=== PATIENT | female | born 1980 | race Caucasian/White ===

== ENCOUNTER 2016-06-11 16:17 | Emergency (ER) | payer MEDICAID ==
[~2016-06-11] VITALS: Ht 170.2 cm; Wt 107.7 kg
[~2016-06-11 16:17] MED LIST: CYAN1000P IM; FENT50DI T-DERMAL; LEVO50TA4 PO; LYRI75CA PO; PERC10TA27 PO; PREN29TA PO; TOPA50TA7 PO; VITA100064 PO
[2016-06-11 16:18] VITALS: BP 129/63; PULSE 63; RESP 16; TEMP 97.9; O2SAT 98
[2016-06-11 16:58] LABS: BLOOD, URINE NEG (NEG); GLUCOSE,URINE NEG (NEG); KETONE, URINE NEG (NEG); NITRITE,URINE NEG (NEG); SQUAMOUS EPITHELIAL CELL URINE 1 /hpf (0-5); URINE COLOR LIGHT-YELLOW (YELLW/STRAW)
[2016-06-11 16:59] LABS: COMMENT (UR) CULT NOT INDICATED; CULTURE IF INDICATED CULT NOT INDICATED
[2016-06-11 17:27] LABS: BASOPHIL % 0.2 % (0.0-2.0); EOSINOPHIL # 0.1 TH/MM3 (0-0.4); EOSINOPHIL % 1.8 % (0.0-4.0); HEMATOCRIT 31.7 % (35.0-46.0); HEMO FLAGS DIFF FINAL; LYMPH % 29.8 % (9.0-44.0); LYMPHOCYTE # 2.1 TH/MM3 (1.0-4.8); MEAN CELL VOLUME 76.6 FL (80.0-100.0); MEAN CORPUSCULAR HEMOGLOBIN 25.5 PG (27.0-34.0); MEAN CORPUSCULAR HGB CONC 33.3 % (32.0-36.0); MONO % 10.7 % (0.0-8.0); NEUT % 57.5 % (16.0-70.0); PLATELET COUNT 223 TH/MM3 (150-450); RED BLOOD COUNT 4.13 MIL/MM3 (4.00-5.30); RED CELL DISTRIBUTION WIDTH 14.8 % (11.6-17.2); WHITE BLOOD COUNT 6.9 TH/MM3 (4.0-11.0)
--- NOTE | 2016-06-11 17:44 | PD ---
HPI Chief Complaint: Abdominal Pain Time Seen by Provider: 17:39 Travel History International Travel<30 days: No Contact w/Intl Traveler<30days: No Traveled to known affect area: No History of Present Illness HPI 35-year-old female that presents to the ED for evaluation of right-sided lower pelvic pain. Per patient she's had this for the past 2-3 days. Per patient is worsening. Per patient she had her regular period about 3-4 weeks ago. Per patient he was normal. Per patient she does have a history of PCOS with surgical removal of teratomas to her ovaries bilaterally. Per patient she's had pain like this in the past and feels like it's related to the old teratomas. She denies any bleeding but states having some clear discharge from her vagina. She does have allergies to anti-inflammatories as well as adhesives and Keflex. She states that her pain is 7 out of 10. Does not radiate. No urinary issues. She still has her appendix. She has no chest pain or shortness of breath. Denies any nausea or vomiting. States the is a possibility but she is not sure. She does tell me the last and she was was in November and she was partially had a miscarriage with a D& C. Nothing makes the pain better or worse. Pain is sharp. PFSH Past Medical History Bipolar Disorder: Yes Depression: Yes Cancer: No Cardiovascular Problems: No Diminished Hearing: No Endocrine: No Fibromyalgia: Yes Gastrointestinal Disorders: Yes (GERD) Genitourinary: No Hepatitis: No Hiatal Hernia: No Hypertension: Yes (BEFORE GASTRIC BYPASS ) Immune Disorder: No Musculoskeletal: Yes (SPINAL STENOSIS, HERNIATED DISCS, RUPTURED DISC, PAIN NECK AND ARMS) Neurologic: Yes (CHIARI SYNDROME, MIGRAINES) Psychiatric: Yes (ANXIETY/DEPRESSION) Reproductive: Yes (POLYCYSTIC OVARIAN SYNDROME) Immunizations Current: Yes Sleep Apnea: Yes (does not wear cpap) Thyroid Disease: Yes (WAS TOLD SHE HAS HYPER BUT TAKES LEVOTHYROXINE) Tetanus Vaccination: < 5 Years Influenza Vaccination: Yes ?: LMP: MAY 06 2016 : 3 Para: 1 Miscarriage: 1 Ovarian Cysts: Yes (POLYCYSTIC OVARIAN DISEASE) Past Surgical History Abdominal Surgery: Yes (GASTRIC BYPASS, DILATION OF SCAR FROM BYPASS) AICD: No Body Medical Devices: NONE Cardiac Surgery: No Section: Yes Ear Surgery: No Endocrine Surgery: No Eye Surgery: No Genitourinary Surgery: No Gynecologic Surgery: Yes (C SECTION, CYSTS REMOVED BILAT OVARY, D&C) Joint Replacement: No Oral Surgery: No Pacemaker: No Other Surgery: Yes (L4 AND L5 REPLACEMENT) Social History Alcohol Use: No Tobacco Use: No Substance Use: No Allergies-Medications (Allergen,Severity, Reaction): Coded Allergies: Adhesives (Verified Allergy, Severe, itching;rash, 06/11/16) Effexor (Verified Allergy, Severe, N/V, 06/11/16) Ibuprofen (Verified Allergy, Severe, S/P GASTRIC BYPASS, 06/11/16) CAUSED ULCER Keflex (Verified Allergy, Severe, Nausea/Vomiting, 06/11/16) Nonsteroidal Anti-Inflammatory Agts (Verified Allergy, Unknown, Nausea/ Vomiting, 06/11/16) IRRITATION LINING OF STOMACH Reported Meds & Prescriptions Reported Meds & Active Scripts Active Reported Vitamin D (Cholecalciferol) 1,000 Unit Tab 2,000 Units PO DAILY Plus Iron 29-1 mg ( Vit-Iron Carbonyl) 1 Tab Tab 1 Tab PO DAILY Topamax (Topiramate) 50 Mg Tab 50 Mg PO BID Percocet (Oxycodone-Acetaminophen) 10-325 mg Tab 1 Tab PO TID PRN PRN Levothyroxine (Levothyroxine Sodium) 50 Mcg Tab 50 Mcg PO DAILY Fentanyl Patch 72 HR (Fentanyl) 50 Mcg/Hr Patch 50 Mcg T-DERMAL Q72H Remove old patch when new one placed. Cyanocobalamin Inj (Cyanocobalamin) 1,000 Mcg/Ml Inj 1,000 Mcg IM Q30D Lyrica (Pregabalin) 75 Mg Cap 75 Mg PO TID Review of Systems General / Constitutional: No: Fever, Chills, Weight Gain, Weight Loss, Other Eyes: No: Diploplia, Blurred Vision, Photophobia, Drainage, Redness, Foreign Body Sensation, Pain, Tearing, Blind Spots, Visual changes, Blindness, Other HENT: No: Headaches, Vertigo, Lightheadedness, Sore Throat, Rhinitis, Rhinorrhea, Congestion, Nosebleed, Neck Stiffness, Neck Pain, Masses, Gingival Bleeding, Dental Difficulties, Ear Discharge, Earache, Other Cardiovascular: No: Chest Pain or Discomfort, Palpitations, Irregular Rhythm, Tachycardia, Diaphoresis, Syncope, Dyspnea on exertion, Varicosities, Edema, Cyanosis, Varicosities, Phlebitis, Claudication, Other Respiratory: No: Cough, Shortness of Breath, Wheezing, Sneezing, Orthopnea, Hemoptysis, Stridor, Night Sweats, Pleuritic Pain, Other Gastrointestinal: Positive: Abdominal Pain, No: Nausea, Vomiting, Diarrhea, Hematemesis, Hematochezia, Constipation, Changes in Bowel Habits, Indigestion, Dysphagia, Loss of Appetite, Other Genitourinary: Positive: Pelvic Pain, Discharge, No: Urgency, Frequency, Dysuria, Nocturia, Hematuria, Decreased Urinary Output, Oliguria, Hesitancy, Dribbling, Incontinence, Flank Pain, Dyspareunia, Dysmenorrhea, Menorrhagia, Metorrhagia, Vaginal Bleeding, Other Musculoskeletal: No: Myalgias, Arthralgias, Limited ROM, Weakness, Cramping, Edema, Pain, Atrophy, Other Skin: No Rash, No Itching, No Dryness, No Lumps, No Hives, No Change in Pigmentation, No Change in nails, No Alopecia, No Lesions, No Breast Lumps, No Breast Tenderness, No Breast Swelling, No Other Neurologic: No: Weakness, Dizziness, Syncope, Focal Abnormalities, Coordination Problem, Tremor, Ataxia, Headache, Change in Mentation, Slurred Speech, Paresthesia, Incontinence, Seizures, Sensory Disturbance, Other Psychiatric: No: Anxiety, Depression, Suicidal Ideations, Disorder of Thought, Mood Disorder, Substance Abuse, Homicidal Ideation, Other Endocrine: No: Heat Intolerance, Cold Intolerance, Polyuria, Polydipsia, Other Hematologic/Lymphatic: No: Easy Bruising, Lymph Node Enlargement, Other Physical Exam Narrative GENERAL: SKIN: Warm and dry. HEAD: Atraumatic. Normocephalic. EYES: Pupils equal and round. No scleral icterus. No injection or drainage. ENT: No nasal bleeding or discharge. Mucous membranes pink and moist. Tongue is midline. No uvula deviation. NECK: Trachea midline. No JVD. CARDIOVASCULAR: Regular rate and rhythm. No murmurs, S3, S4. RESPIRATORY: No accessory muscle use. Clear to auscultation. Breath sounds equal bilaterally. GASTROINTESTINAL: Abdomen soft, patient does have some reproducible pain on the right lower abdomen more on the pelvic region., nondistended. Hepatic and splenic margins not palpable. MUSCULOSKELETAL: Extremities without clubbing, cyanosis, or edema. No obvious deformities. Patient has full range of motion of the upper and lower extremities bilaterally. 2+ pulses bilaterally. NEUROLOGICAL: Awake and alert. No obvious cranial nerve deficits. Motor grossly within normal limits. Five out of 5 muscle strength in the arms and legs. Normal speech. PSYCHIATRIC: Appropriate mood and affect; insight and judgment normal. Data Data Last Documented VS Vital Signs Date Time Temp Pulse Resp B/P Pulse Ox O2 Delivery O2 Flow Rate FiO2 06/11/16 19:23 16 06/11/16 18:15 60 125/57 100 Room Air 06/11/16 16:18 97.9 Orders Ed Urine Pregnancytest Poc (06/11/16 16:25) Urinalysis - C+S If Indicated (06/11/16 16:25) Ed Poc Ultrasound (06/11/16 ) Complete Blood Count With Diff (06/11/16 16:56) Basic Metabolic Panel (Bmp) (06/11/16 16:56) Beta Hcg (Quant/Titer) (06/11/16 16:56) Wet Prep Profile (06/11/16 16:56) Gc And Chlamydia Pcr (06/11/16 16:56) Us Pelvis (Ques Pr/Ect)W Trans (06/11/16 17:01) Acetaminophen (Tylenol) (06/11/16 17:45) Labs Laboratory Tests Test 06/11/16 06/11/16 16:30 17:20 Urine Color LIGHT-YELLOW Urine Turbidity CLEAR Urine pH 7.0 Urine Specific [place] 1.004 Urine Protein NEG mg/dL Urine Glucose (UA) NEG mg/dL Urine Ketones NEG mg/dL Urine Occult Blood NEG Urine Nitrite NEG Urine Bilirubin NEG Urine Urobilinogen LESS THAN 2.0 MG/DL Urine Leukocyte Esterase NEG Urine RBC LESS THAN 1 /hpf Urine WBC LESS THAN 1 /hpf Urine Squamous Epithelial 1 /hpf Cells Microscopic Urinalysis Comment CULT NOT INDICATED White Blood Count 6.9 TH/MM3 Red Blood Count 4.13 MIL/MM3 Hemoglobin 10.5 GM/DL Hematocrit 31.7 % Mean Corpuscular Volume 76.6 FL Mean Corpuscular Hemoglobin 25.5 PG Mean Corpuscular Hemoglobin 33.3 % Concent Red Cell Distribution Width 14.8 % Platelet Count 223 TH/MM3 Mean Platelet Volume 8.8 FL Neutrophils (%) (Auto) 57.5 % Lymphocytes (%) (Auto) 29.8 % Monocytes (%) (Auto) 10.7 % Eosinophils (%) (Auto) 1.8 % Basophils (%) (Auto) 0.2 % Neutrophils # (Auto) 4.0 TH/MM3 Lymphocytes # (Auto) 2.1 TH/MM3 Monocytes # (Auto) 0.7 TH/MM3 Eosinophils # (Auto) 0.1 TH/MM3 Basophils # (Auto) 0.0 TH/MM3 CBC Comment DIFF FINAL Differential Comment Sodium Level 142 MEQ/L Potassium Level 3.6 MEQ/L Chloride Level 111 MEQ/L Carbon Dioxide Level 22.1 MEQ/L Anion Gap 9 MEQ/L Blood Urea Nitrogen 6 MG/DL Creatinine 0.73 MG/DL Estimat Glomerular Filtration 92 ML/MIN Rate Random Glucose 91 MG/DL Calcium Level 8.5 MG/DL Human Chorionic Gonadotropin, 5543 MIU/ML Quant MDM Medical Decision Making Medical Screen Exam Complete: Yes Emergency Medical Condition: Yes Medical Record Reviewed: Yes Interpretation(s) CBC & BMP Diagram 06/11/16 17:20 UA negative Beta in the 5000s Differential Diagnosis PCOs versus ectopic versus IUP versus pain versus vaginal discharge versus normal exam Narrative Course 35-year-old female that presents to the ED for evaluation of right lower abdominal pain. Patient was properly examined and was found to have signs and symptoms which appear to be consistent with pelvic pain. Patient had a positive test. Concern for ectopic . My attending perform a bedside ultrasound and we cannot find an IUP but he could be related to her early . Formal ultrasound was ordered. Labs were ordered. Labs and imaging were essentially unremarkable other than for IUP. Patient was reassured. My attending Dr. Holt reassured the patient. Patient was told that the finding of subchoronic hemorrhage on the ultrasound. Patient was told to take Tylenol for pain. Follow with SOFTWARE DEVELOPER INTERN. See ED for worsening symptoms. Diagnosis Primary Impression: IUP (intrauterine ), incidental Patient Instructions: General Instructions Additional Instructions: F/u SOFTWARE DEVELOPER INTERN. Tylenol for pain. See ED if worst. US showed of 5 weeks, no ectopic, cyst to right ovary. Med/Other Pt SpecificInfo: No Change to Meds Disposition: 01 DISCHARGE HOME Condition: Stable Polo Gilbert Jun 11, 2016 17:44
[2016-06-11] MEDS ORDERED: ACETAMINOPHEN 325 MG TAB PO ONE (17:45)
[2016-06-11 17:47] LABS: BICARBONATE 22.1 MEQ/L (21.0-32.0); POTASSIUM 3.6 MEQ/L (3.5-5.1)
--- NOTE | 2016-06-11 18:04 | PD ---
Data Data Last Documented VS Vital Signs Date Time Temp Pulse Resp B/P Pulse Ox O2 Delivery O2 Flow Rate FiO2 06/11/16 18:15 60 18 125/57 100 Room Air 06/11/16 16:18 97.9 Orders Ed Urine Pregnancytest Poc (06/11/16 16:25) Urinalysis - C+S If Indicated (06/11/16 16:25) Ed Poc Ultrasound (06/11/16 ) Complete Blood Count With Diff (06/11/16 16:56) Basic Metabolic Panel (Bmp) (06/11/16 16:56) Beta Hcg (Quant/Titer) (06/11/16 16:56) Wet Prep Profile (06/11/16 16:56) Gc And Chlamydia Pcr (06/11/16 16:56) Us Pelvis (Ques Pr/Ect)W Trans (06/11/16 17:01) Acetaminophen (Tylenol) (06/11/16 17:45) Labs Laboratory Tests Test 06/11/16 06/11/16 16:30 17:20 Urine Color LIGHT-YELLOW Urine Turbidity CLEAR Urine pH 7.0 Urine Specific [place] 1.004 Urine Protein NEG mg/dL Urine Glucose (UA) NEG mg/dL Urine Ketones NEG mg/dL Urine Occult Blood NEG Urine Nitrite NEG Urine Bilirubin NEG Urine Urobilinogen LESS THAN 2.0 MG/DL Urine Leukocyte Esterase NEG Urine RBC LESS THAN 1 /hpf Urine WBC LESS THAN 1 /hpf Urine Squamous Epithelial 1 /hpf Cells Microscopic Urinalysis Comment CULT NOT INDICATED White Blood Count 6.9 TH/MM3 Red Blood Count 4.13 MIL/MM3 Hemoglobin 10.5 GM/DL Hematocrit 31.7 % Mean Corpuscular Volume 76.6 FL Mean Corpuscular Hemoglobin 25.5 PG Mean Corpuscular Hemoglobin 33.3 % Concent Red Cell Distribution Width 14.8 % Platelet Count 223 TH/MM3 Mean Platelet Volume 8.8 FL Neutrophils (%) (Auto) 57.5 % Lymphocytes (%) (Auto) 29.8 % Monocytes (%) (Auto) 10.7 % Eosinophils (%) (Auto) 1.8 % Basophils (%) (Auto) 0.2 % Neutrophils # (Auto) 4.0 TH/MM3 Lymphocytes # (Auto) 2.1 TH/MM3 Monocytes # (Auto) 0.7 TH/MM3 Eosinophils # (Auto) 0.1 TH/MM3 Basophils # (Auto) 0.0 TH/MM3 CBC Comment DIFF FINAL Differential Comment Sodium Level 142 MEQ/L Potassium Level 3.6 MEQ/L Chloride Level 111 MEQ/L Carbon Dioxide Level 22.1 MEQ/L Anion Gap 9 MEQ/L Blood Urea Nitrogen 6 MG/DL Creatinine 0.73 MG/DL Estimat Glomerular Filtration 92 ML/MIN Rate Random Glucose 91 MG/DL Calcium Level 8.5 MG/DL Human Chorionic Gonadotropin, 5543 MIU/ML Quant [facility] Supervised Visit with NROAH: Yes Narrative Course I, Dr. Lomeli, have reviewed the advance practice practioner's documentation and am in agreement, met with the patient face to face, made the diagnosis, and the medical decision making was done by me. *My assessment and Findings: 35-year-old female miscarriage 1, with history of PCOS with bilateral turtle mole removal here with right lower pelvic pain, sharp 2-3 days, intermittent, gradually worsening. Last menstrual period approximately 3-4 weeks ago. She does not believe she could be . Denies any urinary, bowel symptoms. No vaginal bleeding, typical clear vaginal discharge. Obese, mild reproducible right lower quadrant tenderness to palpation on exam. Differential includes , ectopic , UTI, ovarian cysts and less likely ovarian torsion given her overall benign exam. My suspicion for peritoneal pathology such as appendicitis is low. Urine test was positive, bedside ultrasound performed unable to identify intrauterine . Urinalysis negative. Beta Quant 5543. Will obtain a formal ultrasound to evaluate for IUP versus ectopic versus ovarian cyst. Procedures Procedure Narrative Emergency Department Pelvic ultrasound was performed with patient consent. The curvilinear probe was used in the transverse and sagittal views within the suprapubic region revealing no definitive intrauterine Debbie Lomeli MD Jun 11, 2016 18:04
[2016-06-11 18:15] VITALS: BP 125/57; PULSE 60; RESP 18; O2SAT 100
[2016-06-11 19:23] VITALS: RESP 16
--- NOTE | 2016-06-11 19:53 | RADRPT ---
EXAM DATE/TIME: 06/11/2016 18:17 [place] COMPARISON: No previous studies available for comparison. INDICATIONS : Pelvic pain. LAB(S): Beta-hC MEDICAL HISTORY : . PCOS. GERD. SURGICAL HISTORY : section. Teratomas removed from bilateral ovaries. Gastric bypass. L4 and L5 replacement . ENCOUNTER: [facility] ACUITY: 1 day PAIN SCORE: 7/10 LOCATION: Bilateral pelvis MEASUREMENTS: UTERUS: 9.7 x 5.5 x 6.0 cm ENDOMETRIAL STRIPE: 15 mm RIGHT OVARY: 2.6 x 1.9 x 2.3 cm LEFT OVARY: 4.6 x 2.7 x 4.3 cm FINDINGS: There is intrauterine gestational sac noted with measurements characteristic of 5 week one day gestat ion. No pole identified. Small yolk sac is seen. There is a subchorionic hemorrhage measuring u p to 2.7 x 0.9 x 1 cm. Right ovary unremarkable. 3 cm simple cyst and probably 3 cm corpus luteum cys t noted in the left ovary. No free fluid. CONCLUSION: 1. Early gestation with gestational sac measurements characteristic of gestational age 5 weeks and on e day. Yolk sac seen. No pole or heart rate identified. Subchorionic hemorrhage noted ann suring up to 2.7 x 0.9 x 1 cm. 3 cm left ovarian cysts as well. Titi Skaggs MD on June 11, 2016 at 19:47 Board Certified Radiologist. This report was verified electronically.
== END 2016-06-11 20:12 | disposition home or self-care (01) ==
LOC: NEPC 16:17
DX: O26.891 Other specified pregnancy related conditions, first trimester (principal); F31.9 Bipolar disorder, unspecified; M79.7 Fibromyalgia; K21.9 Gastro-esophageal reflux disease without esophagitis; E28.2 Polycystic ovarian syndrome
CPT/HCPCS: 76700; 76817; 80048; 81001; 84702; 84703; 85025

== ENCOUNTER → 2016-06-14 | Outpatient (CLI) | payer MEDICAID ==
[~2016-06-14] MED LIST changes: +FERR1TAB36 PO
== END ==
LOC: CLAB 10:23
PROVIDERS: ATTEND Obstetrics & Gynecology
DX: O36.0190 Maternal care for anti-D [Rh] antibodies, unspecified trimester, not applicable or unspecified (principal)
CPT/HCPCS: 36415; 90384; 96372; J2790

== ENCOUNTER 2016-08-11 19:29 | Emergency (ER) | payer MEDICAID ==
[~2016-08-11] VITALS: Ht 175.3 cm; Wt 88.0 kg
[~2016-08-11 19:29] MED LIST changes: -FERR1TAB36 PO
[2016-08-11 19:31] VITALS: BP 136/69; PULSE 78; RESP 16; TEMP 98; O2SAT 100
[2016-08-11 20:25] VITALS: BP 118/61; PULSE 70; RESP 18; O2SAT 98
[2016-08-11] MEDS ORDERED: FERR1TAB36 PO (20:25)
[2016-08-11] MEDS ORDERED: SODIUM CHLOR 0.9% 1000 ML INJ 1,000 ML IV ONE (20:33)
[2016-08-11] MEDS ORDERED: MORPHINE SULFATE 4 MG/ML INJ IV PUSH ONE (20:45)
[2016-08-11] MEDS ORDERED: ONDANSETRON HCL 4 MG/2 ML VIAL IVP ONE (20:45)
[2016-08-11] MEDS ORDERED: SODIUM CHLORIDE 0.9% FLUSH 10 ML FLUSH IVF PRN (20:45)
--- NOTE | 2016-08-11 20:55 | PD ---
HPI Chief Complaint: Fall Time Seen by Provider: 20:42 Travel History International Travel<30 days: No Contact w/Intl Traveler<30days: No Traveled to known affect area: No History of Present Illness HPI Patient is a 35-year-old female presenting to emergency Department for evaluation after a fall. Patient states that she was walking down the stairs at her home when she became dizzy and shaky. She fell down approximately 4 steps landing on her buttocks hitting her lower back on the stair tread. She is approximately 14 weeks , she's had daily vomiting for the better part of the . Patient is presenting complaining of pain in her lower back, she reports the pain as a 7 out of 10 and describes it as sore. Patient states the pain radiates around to her right groin injury but feels as if she had a brief loss of consciousness, awakening when her 3-year-old son tapped on her. PFSH Past Medical History Bipolar Disorder: Yes Depression: Yes Cancer: No Cardiovascular Problems: No Diminished Hearing: No Endocrine: No Fibromyalgia: Yes Gastrointestinal Disorders: Yes (GERD) Genitourinary: No Hepatitis: No Hiatal Hernia: No Hypertension: Yes (BEFORE GASTRIC BYPASS ) Immune Disorder: No Musculoskeletal: Yes (SPINAL STENOSIS, HERNIATED DISCS, RUPTURED DISC, PAIN NECK AND ARMS) Neurologic: Yes (CHIARI SYNDROME, MIGRAINES) Psychiatric: Yes (ANXIETY/DEPRESSION) Reproductive: Yes (POLYCYSTIC OVARIAN SYNDROME) Immunizations Current: Yes Sleep Apnea: Yes (does not wear cpap) Thyroid Disease: Yes (WAS TOLD SHE HAS HYPER BUT TAKES LEVOTHYROXINE) Tetanus Vaccination: < 5 Years Influenza Vaccination: Yes ?: : 3 Para: 1 Miscarriage: 1 Ovarian Cysts: Yes (POLYCYSTIC OVARIAN DISEASE) Past Surgical History Abdominal Surgery: Yes (GASTRIC BYPASS, DILATION OF SCAR FROM BYPASS) AICD: No Body Medical Devices: NONE Cardiac Surgery: No Section: Yes Ear Surgery: No Endocrine Surgery: No Eye Surgery: No Genitourinary Surgery: No Gynecologic Surgery: Yes (C SECTION, CYSTS REMOVED BILAT OVARY, D&C) Joint Replacement: No Oral Surgery: No Pacemaker: No Other Surgery: Yes (L4 AND L5 REPLACEMENT) Social History Alcohol Use: No Tobacco Use: No Substance Use: No Allergies-Medications (Allergen,Severity, Reaction): Coded Allergies: Adhesives (Verified Allergy, Severe, itching;rash, 08/11/16) Effexor (Verified Allergy, Severe, N/V, 08/11/16) Ibuprofen (Verified Allergy, Severe, S/P GASTRIC BYPASS, 08/11/16) CAUSED ULCER Keflex (Verified Allergy, Severe, Nausea/Vomiting, 08/11/16) Nonsteroidal Anti-Inflammatory Agts (Verified Allergy, Unknown, Nausea/ Vomiting, 08/11/16) IRRITATION LINING OF STOMACH Reported Meds & Prescriptions Reported Meds & Active Scripts Active Reported Iron (Ferrous Sulfate) 325 Mg Tab 325 Mg PO DAILY Take Vitamin D (Cholecalciferol) 1,000 Unit Tab 2,000 Units PO DAILY Plus Iron 29-1 mg ( Vit-Iron Carbonyl) 1 Tab Tab 1 Tab PO DAILY Topamax (Topiramate) 50 Mg Tab 50 Mg PO BID Percocet (Oxycodone-Acetaminophen) 10-325 mg Tab 1 Tab PO TID PRN PRN Levothyroxine (Levothyroxine Sodium) 50 Mcg Tab 50 Mcg PO DAILY Fentanyl Patch 72 HR (Fentanyl) 50 Mcg/Hr Patch 50 Mcg T-DERMAL Q72H Remove old patch when new one placed. Cyanocobalamin Inj (Cyanocobalamin) 1,000 Mcg/Ml Inj 1,000 Mcg IM Q30D Lyrica (Pregabalin) 75 Mg Cap 75 Mg PO TID Review of Systems Except as stated in HPI: all other systems reviewed are Neg HENT: Positive: Neck Pain, No: Headaches Cardiovascular: No: Chest Pain or Discomfort Respiratory: No: Shortness of Breath Gastrointestinal: Positive: Nausea, Vomiting, No: Abdominal Pain Musculoskeletal: Positive: Myalgias, Cramping, Pain Neurologic: Positive: Weakness, No: Focal Abnormalities, Change in Mentation, Sensory Disturbance Physical Exam Narrative GENERAL: Obese, well-developed, alert female. Resting comfortably in no acute distress. SKIN: Focused skin assessment warm/dry. HEAD: Atraumatic. Normocephalic. EYES: Pupils equal and round. No scleral icterus. No injection or drainage. ENT: No nasal bleeding or discharge. Mucous membranes pink and moist. NECK: Trachea midline. No JVD. CARDIOVASCULAR: Regular rate and rhythm. No murmur appreciated. RESPIRATORY: No accessory muscle use. Clear to auscultation. Breath sounds equal bilaterally. GASTROINTESTINAL: Abdomen soft, non-tender, nondistended. Hepatic and splenic margins not palpable. Positive bowel sounds, no rebound, no guarding MUSCULOSKELETAL: No obvious deformities. No clubbing. No cyanosis. No edema. Tenderness to palpation. Spinal musculature in the lumbar region. NEUROLOGICAL: Awake and alert. No obvious cranial nerve deficits. Motor grossly within normal limits. Normal speech. PSYCHIATRIC: Appropriate mood and affect; insight and judgment normal. Data Data Last Documented VS Vital Signs Date Time Temp Pulse Resp B/P Pulse Ox O2 Delivery O2 Flow Rate FiO2 08/11/16 23:07 60 18 115/65 99 Room Air 08/11/16 19:31 98.0 Orders Complete Blood Count With Diff (08/11/16 20:33) Comprehensive Metabolic Panel (08/11/16 20:33) Magnesium (Mg) (08/11/16 20:33) Urinalysis - C+S If Indicated (08/11/16 20:33) Ecg Monitoring (08/11/16 20:33) Iv Access Insert/Monitor (08/11/16 20:33) Oximetry (08/11/16 20:33) Ondansetron Inj (Zofran Inj) (08/11/16 20:45) Sodium Chloride 0.9% Flush (Ns Flush) (08/11/16 20:45) Sodium Chlor 0.9% 1000 Ml Inj (Ns 1000 M (08/11/16 20:33) Morphine Inj (Morphine Inj) (08/11/16 20:45) Labs Laboratory Tests Test 08/11/16 08/11/16 20:23 20:35 Urine Color YELLOW Urine Turbidity HAZY Urine pH 6.0 Urine Specific [place] 1.015 Urine Protein TRACE mg/dL Urine Glucose (UA) NEG mg/dL Urine Ketones NEG mg/dL Urine Occult Blood NEG Urine Nitrite NEG Urine Bilirubin NEG Urine Urobilinogen LESS THAN 2.0 MG/DL Urine Leukocyte Esterase SMALL Urine WBC 2 /hpf Urine Squamous Epithelial 8 /hpf Cells Urine Bacteria OCC /hpf Urine Mucus FEW /lpf Microscopic Urinalysis Comment CULT NOT INDICATED White Blood Count 12.5 TH/MM3 Red Blood Count 4.58 MIL/MM3 Hemoglobin 11.4 GM/DL Hematocrit 34.4 % Mean Corpuscular Volume 75.2 FL Mean Corpuscular Hemoglobin 24.8 PG Mean Corpuscular Hemoglobin 33.0 % Concent Red Cell Distribution Width 16.4 % Platelet Count 195 TH/MM3 Mean Platelet Volume 9.0 FL Neutrophils (%) (Auto) 72.7 % Lymphocytes (%) (Auto) 19.7 % Monocytes (%) (Auto) 6.5 % Eosinophils (%) (Auto) 1.0 % Basophils (%) (Auto) 0.1 % Neutrophils # (Auto) 9.1 TH/MM3 Lymphocytes # (Auto) 2.5 TH/MM3 Monocytes # (Auto) 0.8 TH/MM3 Eosinophils # (Auto) 0.1 TH/MM3 Basophils # (Auto) 0.0 TH/MM3 CBC Comment AUTO DIFF Differential Comment AUTO DIFF CONFIRMED Sodium Level 137 MEQ/L Potassium Level 3.8 MEQ/L Chloride Level 105 MEQ/L Carbon Dioxide Level 24.0 MEQ/L Anion Gap 8 MEQ/L Blood Urea Nitrogen 4 MG/DL Creatinine 0.58 MG/DL Estimat Glomerular Filtration 120 ML/MIN Rate Random Glucose 82 MG/DL Calcium Level 8.7 MG/DL Magnesium Level 2.3 MG/DL Total Bilirubin 0.2 MG/DL Aspartate Amino Transf 12 U/L (AST/SGOT) Alanine Aminotransferase 14 U/L (ALT/SGPT) Alkaline Phosphatase 87 U/L Total Protein 7.2 GM/DL Albumin 3.0 GM/DL MDM Medical Decision Making Medical Screen Exam Complete: Yes Emergency Medical Condition: Yes Interpretation(s) Vital Signs Date Time Temp Pulse Resp B/P Pulse Ox O2 Delivery O2 Flow Rate FiO2 08/11/16 20:25 70 18 118/61 98 Room Air 08/11/16 19:31 98.0 78 16 136/69 100 Room Air Differential Diagnosis strain versus sprain versus discogenic pain versus fracture versus electrolyte abnormality versus other Narrative Course Patient is a 35-year-old female presented to the emergency department for evaluation of back and neck pain after a fall that she sustained just prior to arrival. Patient is approximately 14 weeks . Bedside ultrasound shows heart tones and movement. Labs, IV fluids ordered and pending. Care of patient transferred to my attending physician at the end of my shift, he will determine patient's disposition. Diamante Soria Aug 11, 2016 20:55
[2016-08-11 20:56] LABS: AUTOMATED NEUTROPHIL # 9.1 TH/MM3 (1.8-7.7); BASOPHIL % 0.1 % (0.0-2.0); EOSINOPHIL # 0.1 TH/MM3 (0-0.4); HEMATOCRIT 34.4 % (35.0-46.0); LYMPH % 19.7 % (9.0-44.0); LYMPHOCYTE # 2.5 TH/MM3 (1.0-4.8); MEAN CELL VOLUME 75.2 FL (80.0-100.0); MEAN CORPUSCULAR HEMOGLOBIN 24.8 PG (27.0-34.0); MONO % 6.5 % (0.0-8.0); NEUT % 72.7 % (16.0-70.0); PLATELET COUNT 195 TH/MM3 (150-450); RED BLOOD COUNT 4.58 MIL/MM3 (4.00-5.30); RED CELL DISTRIBUTION WIDTH 16.4 % (11.6-17.2); WHITE BLOOD COUNT 12.5 TH/MM3 (4.0-11.0)
[2016-08-11 21:03] LABS: ANION GAP 8 MEQ/L (5-15); AST (GOT) 12 U/L (15-37); BLOOD UREA NITROGEN 4 MG/DL (7-18); CHLORIDE 105 MEQ/L (98-107); GLOMERULAR FILTRATION RATE 120 ML/MIN (>89); MAGNESIUM 2.3 MG/DL (1.5-2.5); POTASSIUM 3.8 MEQ/L (3.5-5.1); SODIUM (NA) 137 MEQ/L (136-145)
[2016-08-11 21:06] LABS: ALKALINE PHOSPHATASE 87 U/L (45-117); ALT (GPT) 14 U/L (10-53); TOTAL BILIRUBIN ADULT 0.2 MG/DL (0.2-1.0)
[2016-08-11 21:09] LABS: HEMO FLAGS AUTO DIFF
[2016-08-11 21:28] VITALS: BP 115/63; PULSE 55; RESP 17; O2SAT 100
[2016-08-11 21:43] LABS: SCAN/DIFF AUTO DIFF CONFIRMED
[2016-08-11 21:47] LABS: BACTERIA, URINE OCC /hpf; BLOOD, URINE NEG (NEG); COMMENT (UR) CULT NOT INDICATED; CULTURE IF INDICATED CULT NOT INDICATED; GLUCOSE,URINE NEG (NEG); KETONE, URINE NEG (NEG); MUCUS URINE FEW /lpf (OCC); NITRITE,URINE NEG (NEG); SQUAMOUS EPITHELIAL CELL URINE 8 /hpf (0-5); URINE COLOR YELLOW (YELLW/STRAW)
[2016-08-11 23:07] VITALS: BP 115/65; PULSE 60; RESP 18; O2SAT 99
--- NOTE | 2016-08-11 23:51 | PD ---
Data Data Last Documented VS Vital Signs Date Time Temp Pulse Resp B/P Pulse Ox O2 Delivery O2 Flow Rate FiO2 08/11/16 23:07 60 18 115/65 99 Room Air 08/11/16 19:31 98.0 Orders Complete Blood Count With Diff (08/11/16 20:33) Comprehensive Metabolic Panel (08/11/16 20:33) Magnesium (Mg) (08/11/16 20:33) Urinalysis - C+S If Indicated (08/11/16 20:33) Ecg Monitoring (08/11/16 20:33) Iv Access Insert/Monitor (08/11/16 20:33) Oximetry (08/11/16 20:33) Ondansetron Inj (Zofran Inj) (08/11/16 20:45) Sodium Chloride 0.9% Flush (Ns Flush) (08/11/16 20:45) Sodium Chlor 0.9% 1000 Ml Inj (Ns 1000 M (08/11/16 20:33) Morphine Inj (Morphine Inj) (08/11/16 20:45) Labs Laboratory Tests Test 08/11/16 08/11/16 20:23 20:35 Urine Color YELLOW Urine Turbidity HAZY Urine pH 6.0 Urine Specific [place] 1.015 Urine Protein TRACE mg/dL Urine Glucose (UA) NEG mg/dL Urine Ketones NEG mg/dL Urine Occult Blood NEG Urine Nitrite NEG Urine Bilirubin NEG Urine Urobilinogen LESS THAN 2.0 MG/DL Urine Leukocyte Esterase SMALL Urine WBC 2 /hpf Urine Squamous Epithelial 8 /hpf Cells Urine Bacteria OCC /hpf Urine Mucus FEW /lpf Microscopic Urinalysis Comment CULT NOT INDICATED White Blood Count 12.5 TH/MM3 Red Blood Count 4.58 MIL/MM3 Hemoglobin 11.4 GM/DL Hematocrit 34.4 % Mean Corpuscular Volume 75.2 FL Mean Corpuscular Hemoglobin 24.8 PG Mean Corpuscular Hemoglobin 33.0 % Concent Red Cell Distribution Width 16.4 % Platelet Count 195 TH/MM3 Mean Platelet Volume 9.0 FL Neutrophils (%) (Auto) 72.7 % Lymphocytes (%) (Auto) 19.7 % Monocytes (%) (Auto) 6.5 % Eosinophils (%) (Auto) 1.0 % Basophils (%) (Auto) 0.1 % Neutrophils # (Auto) 9.1 TH/MM3 Lymphocytes # (Auto) 2.5 TH/MM3 Monocytes # (Auto) 0.8 TH/MM3 Eosinophils # (Auto) 0.1 TH/MM3 Basophils # (Auto) 0.0 TH/MM3 CBC Comment AUTO DIFF Differential Comment AUTO DIFF CONFIRMED Sodium Level 137 MEQ/L Potassium Level 3.8 MEQ/L Chloride Level 105 MEQ/L Carbon Dioxide Level 24.0 MEQ/L Anion Gap 8 MEQ/L Blood Urea Nitrogen 4 MG/DL Creatinine 0.58 MG/DL Estimat Glomerular Filtration 120 ML/MIN Rate Random Glucose 82 MG/DL Calcium Level 8.7 MG/DL Magnesium Level 2.3 MG/DL Total Bilirubin 0.2 MG/DL Aspartate Amino Transf 12 U/L (AST/SGOT) Alanine Aminotransferase 14 U/L (ALT/SGPT) Alkaline Phosphatase 87 U/L Total Protein 7.2 GM/DL Albumin 3.0 GM/DL MDM Supervised Visit with NORAH: Yes Narrative Course This patient was started by JAZLYN Bobby but her shift and then she checked out the case to me to disposition. I reviewed her lab studies which are normal In presence of the nurse I examined her. There is no evidence of traumatic injury. No bruising or swelling etc. She has normal neurologic function. We discussed risks and benefits of x-ray of lumbosacral spine and pelvis given that she is 14 weeks I don't recommend that. She is ambulatory in the department and did fine. I don't think she has any acute fracture. Recommend Tylenol as needed Recommend she follow up with her physician Diagnosis Primary Impression: Back pain Qualified Code: M54.5 - Acute left-sided low back pain without sciatica Additional Impression: Qualified Code: Z3A.14 - 14 weeks gestation of Additional Instruction: The patient was advised to follow up with their physician and return if they worsen. Med/Other Pt SpecificInfo: Other Disposition: 01 DISCHARGE HOME Condition: Stable Slade Liu MD Aug 11, 2016 23:51
== END 2016-08-12 | disposition home or self-care (01) ==
LOC: NEPD 19:29
DX: M54.5 Low back pain (principal); Z3A.14 14 weeks gestation of pregnancy; K21.9 Gastro-esophageal reflux disease without esophagitis; I10 Essential (primary) hypertension; W10.9XXA Fall (on) (from) unspecified stairs and steps, initial encounter
CPT/HCPCS: 80053; 81001; 83735; 85025; 96361; 96374; 96375; 99284; J2270; J2405; J7030

== ENCOUNTER 2016-11-17 19:52 | Emergency (ER) | payer MEDICAID ==
[~2016-11-17 19:52] MED LIST changes: +FERR1TAB36 PO
[2016-11-17 20:18] VITALS: RESP 18
[2016-11-17 20:19] VITALS: BP 116/80; PULSE 94
--- NOTE | 2016-11-17 20:24 | PD ---
HPI Chief Complaint 36-year-old 3 para 1 AB 1 at 29+ weeks gestation who comes today with complaint of foul-smelling vaginal discharge for 2-3 days. She also notes right lower quadrant pain over the past several weeks. She denies any leakage of fluid, bleeding. She reports movement is normal. No fever chills, no dysuria hematuria or frequency, positive diarrhea with no change in stool color or blood in the stool Date Seen: Nov 17, 2016 Time Seen: 20:10 Travel History International Travel<30 Days: No Contact w/Intl Traveler<30Days: No Known Affected Area: No History of Present Illness Para: 1 : 3 Miscarriage: 1 History Past Medical History Narrative Medical Fibromyalgia, bipolar disorder, chronic pain, hypothyroidism, obesity Past Surgical History Narrative Surgical Gastric bypass, carpal tunnel release 2, laminectomy, bilateral ovarian cystectomy Family History Family History: Negative Social History Alcohol Use: No Tobacco Use: No Substance Abuse: No Allergies-Medications (Allergen,Severity, Reaction): Coded Allergies: Adhesives (Verified Allergy, Severe, itching;rash, 08/11/16) Effexor (Verified Allergy, Severe, N/V, 08/11/16) Ibuprofen (Verified Allergy, Severe, S/P GASTRIC BYPASS, 08/11/16) CAUSED ULCER Keflex (Verified Allergy, Severe, Nausea/Vomiting, 08/11/16) Nonsteroidal Anti-Inflammatory Agts (Verified Allergy, Unknown, Nausea/ Vomiting, 08/11/16) IRRITATION LINING OF STOMACH Home Meds Reported Medications Ferrous Sulfate (Iron)325 Mg [id number] Mg PO DAILY Ref 0 Take 08/11/16 Cholecalciferol (Vitamin D3)1,000 Unit Tab2,000 Units PO DAILY #1 BOTTLE Ref 0 03/03/16 Vit-Iron Carbonyl ( Plus Iron 29-1 mg)1 Tab Tab1 Tab PO DAILY #30 TAB Ref 0 02/28/16 Topiramate (Topamax)50 Mg Tab50 Mg PO BID #60 TAB Ref 0 02/28/16 Oxycodone-Acetaminophen (Percocet)10-325 mg Tab1 Tab PO TID PRN PRN (PAIN) Ref 0 02/28/16 Levothyroxine 50 Mcg Tab50 Mcg PO DAILY #30 TAB Ref 0 02/28/16 Fentanyl Patch 72 HR 50 Mcg/Hr Patch50 Mcg T-DERMAL Q72H #10 PATCH Ref 0 Remove old patch when new one placed. 02/28/16 Cyanocobalamin Inj 1,000 Mcg/Ml Inj1,000 Mcg IM Q30D #1 VIAL Ref 0 02/28/16 Pregabalin (Lyrica)75 Mg Cap75 Mg PO TID #90 CAP Ref 0 02/28/16 Review of Systems Except as stated in HPI: all other systems reviewed are Neg Physical Exam Narrative GENERAL: Well-nourished, well-developed patient. SKIN: Warm and dry. HEAD: Normocephalic and atraumatic. EYES: No scleral icterus. No injection or drainage. ENT: No nasal drainage noted. Mucous membranes pink. Airway patent. NECK: Supple, trachea midline. No JVD. CARDIOVASCULAR: Regular rate and rhythm without murmurs, gallops, or rubs. RESPIRATORY: Breath sounds equal bilaterally. No accessory muscle use. ABDOMEN/GI: Abdomen soft, non-tender, bowel sounds present, no rebound, no guarding Gravid to [-] weeks size Fundal Height: [29-] GENITOURINARY: External Genitalia: intact and normal in appearance BUS glands: [-Negative] thin white vaginal discharge Cervix: [-] Dilatation: [-Closed] Effacement: [-] Long Station: [I-] Presentation: [-] Membranes: [intact ] Uterine Contractions: [-] FHT's: Category: [-] Baseline: [-] Reactive: [-] Variability: [-] Decels: [-] EXTREMITIES: No cyanosis or edema. BACK: Nontender without obvious deformity. No CVA tenderness. NEUROLOGICAL: Awake and alert. Motor and sensory grossly within normal limits. Five out of 5 muscle strength in all muscle groups. Normal speech. Data Data Vital Signs Reviewed: Yes Orders Vital Signs (Adult) .ON ADMISSION (11/17/16 20:15) ^ Labor Status (11/17/16 20:15) Urinalysis - C+S If Indicated (11/17/16 20:15) Wet Prep Profile (11/17/16 20:15) MDM Medical Record Reviewed: Yes Narrative Course / MDM Assessment: 29 week intrauterine with noninfectious vaginal discharge. Lower abdominal discomfort without evidence of acute abdominal process. Plan: Continue routine care Diagnosis Diagnosis: Primary Impression: 37 weeks gestation of Additional Impression: Vaginal discharge during in third trimester Disposition: 01 DISCHARGE HOME Junito Carter MD Nov 17, 2016 20:24
[2016-11-17 20:53] LABS: BLOOD, URINE NEG (NEG); COMMENT (UR) CULT NOT INDICATED; CULTURE IF INDICATED CULT NOT INDICATED; GLUCOSE,URINE NEG (NEG); KETONE, URINE NEG (NEG); MUCUS URINE FEW /lpf (OCC); NITRITE,URINE NEG (NEG); SQUAMOUS EPITHELIAL CELL URINE 4 /hpf (0-5); URINE COLOR YELLOW (YELLW/STRAW)
== END 2016-11-17 21:38 | disposition home or self-care (01) ==
LOC: HOBED 19:52
DX: O26.893 Other specified pregnancy related conditions, third trimester (principal); N89.8 Other specified noninflammatory disorders of vagina; R10.31 Right lower quadrant pain; O99.283 Endocrine, nutritional and metabolic diseases complicating pregnancy, third trimester; E03.9 Hypothyroidism, unspecified; Z87.39 Personal history of other diseases of the musculoskeletal system and connective tissue; Z86.59 Personal history of other mental and behavioral disorders; Z3A.29 29 weeks gestation of pregnancy
CPT/HCPCS: 81001; 87210; 99284